=== PATIENT | male | born 1980 | race Caucasian/White ===

== ENCOUNTER 2019-12-13 10:06 | Outpatient (RCR) | payer MEDICARE, SELFPAY | END 2020-01-08 23:59 | disposition home or self-care (01) | LOC: WOUND 10:06 | PROVIDERS: Family Provider Family Medicine; PCP Nurse Practitioner Family; Visit Provider Nurse Practitioner Family | DX: M79.672 Pain in left foot (principal); F17.210 Nicotine dependence, cigarettes, uncomplicated | CPT/HCPCS: 99204; G0463; L3260 ==

== ENCOUNTER → 2020-01-24 09:32 | Outpatient (BNVA) | payer MEDICARE, SELFPAY | PROVIDERS: Family Provider Family Medicine; PCP Nurse Practitioner Family; Referring Provider Nurse Practitioner Family; Visit Provider Podiatrist Foot & Ankle Surgery | DX: M25.572 Pain in left ankle and joints of left foot (principal) | CPT/HCPCS: 73610 ==

== ENCOUNTER 2020-05-10 20:00 | Outpatient (CLI) | payer MEDICARE, SELFPAY | END 2020-05-10 20:01 | disposition home or self-care (01) | LOC: SLEEP 05-11 09:15 | PROVIDERS: Family Provider Family Medicine; PCP Nurse Practitioner Family; Visit Provider Anesthesiology Pain Medicine | DX: G47.33 Obstructive sleep apnea (adult) (pediatric); R06.83 Snoring; R53.83 Other fatigue | CPT/HCPCS: 95810 ==

== ENCOUNTER 2020-06-13 20:00 | Outpatient (CLI) | payer MEDICARE, SELFPAY | END 2020-06-13 20:01 | disposition home or self-care (01) | LOC: SLEEP 06-14 09:21 | PROVIDERS: Family Provider Family Medicine; PCP Nurse Practitioner Family; Visit Provider Anesthesiology Pain Medicine | DX: G47.33 Obstructive sleep apnea (adult) (pediatric) (principal) | CPT/HCPCS: 95811 ==